=== PATIENT | male | born 1990 | race Hispanic/Latino ===

== ENCOUNTER 2017-04-09 08:45 | Emergency (ER) | payer SELFPAY ==
[~2017-04-09] VITALS: Ht 170.2 cm; Wt 52.3 kg
[~2017-04-09 08:45] MED LIST: KEFLEX500 MG PO; MOTRIN800 MG PO; NAPROSYN500 MG PO; NO; ROBITUSSIN AC10 ML PO; ULTRAM50 M1 PO; ZITHROMAX250 MG PO
[2017-04-09 11:03] VITALS: BP 126/87
== END 2017-04-09 11:14 | disposition home or self-care (01) | DRG 607 ==
LOC: ED 08:45
DX: L90.5 Scar conditions and fibrosis of skin (principal); F17.210 Nicotine dependence, cigarettes, uncomplicated

== ENCOUNTER 2018-06-09 09:44 | Emergency (ER) | payer SELFPAY ==
[~2018-06-09] VITALS: Ht 170.2 cm; Wt 60.0 kg
[2018-06-09] MEDS ORDERED: MOTRIN400 MG PO (09:52)
[2018-06-09 10:55] VITALS: BP 118/60
== END 2018-06-09 10:55 | disposition home or self-care (01) | DRG 563 ==
LOC: ED 09:44
PROC: 2W3DX1Z Immobilization of Left Lower Arm using Splint (ICD-10-PCS; principal; 2018-06-09)
DX: S63.502A Unspecified sprain of left wrist, initial encounter (principal); V00.131A Fall from skateboard, initial encounter; Y93.I9 Activity, other involving external motion; Y92.007 Garden or yard of unspecified non-institutional (private) residence as the place of occurrence of the external cause

== ENCOUNTER 2018-07-18 20:08 | Emergency (ER) | payer SELFPAY ==
[~2018-07-18] VITALS: Ht 170.2 cm; Wt 54.0 kg
[~2018-07-18 20:08] MED LIST changes: +MOTRIN400 MG PO
[2018-07-18] MEDS ORDERED: AUGMENTIN875TAB PO (20:28)
[2018-07-18 20:45] VITALS: BP 122/82
== END 2018-07-18 20:45 | disposition home or self-care (01) | DRG 153 ==
LOC: ED 20:08
DX: J01.90 Acute sinusitis, unspecified (principal); F17.210 Nicotine dependence, cigarettes, uncomplicated

== ENCOUNTER 2018-07-27 17:30 | Emergency (ER) | payer OTHER ==
[~2018-07-27] VITALS: Ht 170.2 cm; Wt 52.3 kg
[~2018-07-27 17:30] MED LIST changes: +AUGMENTIN875TAB PO
[2018-07-27] MEDS ORDERED: TORADOL PO (18:23)
[2018-07-27] MEDS ORDERED: FLEXERIL PO (18:23)
[2018-07-27 19:08] VITALS: BP 116/68
== END 2018-07-27 19:12 | disposition home or self-care (01) | DRG 552 ==
LOC: ED 17:30
DX: S16.1XXA Strain of muscle, fascia and tendon at neck level, initial encounter (principal); F17.210 Nicotine dependence, cigarettes, uncomplicated; V49.40XA Driver injured in collision with unspecified motor vehicles in traffic accident, initial encounter

== ENCOUNTER 2021-01-31 07:34 | Emergency (ER) | payer SELFPAY ==
[~2021-01-31 07:34] MED LIST changes: +FLEXERIL PO; +TORADOL PO
[2021-01-31] MEDS ORDERED: IBUPROFEN600 MG PO (11:34)
[2021-01-31 11:37] VITALS: BP 139/85
== END 2021-01-31 11:40 | disposition home or self-care (01) | DRG 195 ==
LOC: ED 07:34
DX: R09.1 Pleurisy (principal); R05 Cough; F17.200 Nicotine dependence, unspecified, uncomplicated; Z87.09 Personal history of other diseases of the respiratory system; Z20.822 Contact with and (suspected) exposure to COVID-19

== ENCOUNTER 2021-07-25 10:26 | Emergency (ER) | payer SELFPAY ==
[~2021-07-25] VITALS: Ht 170.2 cm; Wt 64.0 kg
[~2021-07-25 10:26] MED LIST changes: +IBUPROFEN600 MG PO
[2021-07-25 12:00] VITALS: BP 132/90
== END 2021-07-25 12:00 | disposition home or self-care (01) | DRG 179 ==
LOC: ED 10:26
DX: U07.1 COVID-19 (principal); F17.200 Nicotine dependence, unspecified, uncomplicated

== ENCOUNTER → 2022-04-28 | Emergency (ER) | payer SELFPAY ==
[~2022-04-28] VITALS: Ht 170.2 cm; Wt 52.3 kg
[2022-04-28 02:58] LABS: HEMATOCRIT 40.3 % (39.0-50.0); HEMOGLOBIN 13.9 g/dl (14.0-18.0); IMMATURE GRANULOCYTES 0.1 % (0.0-5.0); MEAN CELL VOLUME 93.3 fL CALC (80.0-100.0); MEAN CORPUSCULAR HGB 32.2 pG CALC (26.0-32.0); MEAN CORPUSCULAR HGB CONC 34.5 g/dL CAL (32.0-36.0); NEUT# 7.85 thou/uL (1.82-7.42); RED BLOOD COUNT 4.32 mill/uL (4.70-6.10); RED CELL DISTRI WIDTH 11.6 % (11.5-15.5)
[2022-04-28 03:04] VITALS: BP 116/74
== END | disposition home or self-care (01) | DRG 866 ==
LOC: ED 02:27
PROVIDERS: Family Medicine
DX: B34.9 Viral infection, unspecified (principal); F17.200 Nicotine dependence, unspecified, uncomplicated; Z20.822 Contact with and (suspected) exposure to COVID-19

== ENCOUNTER 2022-10-07 18:07 | Emergency (ER) | payer SELFPAY ==
[~2022-10-07] VITALS: Ht 170.2 cm; Wt 52.1 kg
[2022-10-07 18:31] VITALS: BP 115/76
[2022-10-07 19:00] VITALS: BP 108/73
[2022-10-07 19:31] LABS: HEMATOCRIT 38.3 % (39.0-50.0); HEMOGLOBIN 13.3 g/dl (14.0-18.0); IMMATURE GRANULOCYTES 0.1 % (0.0-5.0); MEAN CELL VOLUME 93.4 fL CALC (80.0-100.0); MEAN CORPUSCULAR HGB 32.4 pG CALC (26.0-32.0); MEAN CORPUSCULAR HGB CONC 34.7 g/dL CAL (32.0-36.0); NEUT# 5.4 thou/uL (1.82-7.42); RED BLOOD COUNT 4.1 mill/uL (4.70-6.10)
[2022-10-07] MEDS ORDERED: TAM75CAP PO (21:20)
[2022-10-07 21:33] VITALS: BP 108/73
== END 2022-10-07 21:39 | disposition home or self-care (01) | DRG 153 ==
LOC: ED 18:07
PROVIDERS: Family Medicine
DX: J11.1 Influenza due to unidentified influenza virus with other respiratory manifestations (principal); Z20.822 Contact with and (suspected) exposure to COVID-19; F17.210 Nicotine dependence, cigarettes, uncomplicated

== ENCOUNTER 2024-07-07 12:47 | Emergency (ER) | payer SELFPAY ==
[~2024-07-07] VITALS: Ht 170.2 cm; Wt 50.0 kg
[~2024-07-07 12:47] MED LIST changes: +TAM75CAP PO
[2024-07-07 13:10] VITALS: BP 130/84
[2024-07-07 13:15] VITALS: BP 102/68
[2024-07-07 13:45] VITALS: BP 107/68
[2024-07-07 13:46] LABS: BASO% 0.6 % (0-3); EOS% 2.1 % (0-8); HEMOGLOBIN 14.1 g/dl (14.0-18.0); IMMATURE GRANULOCYTES 0.1 % (0.0-5.0); LYMPH% 28.7 % (15-41); MEAN CELL VOLUME 97.7 fL CALC (80.0-100.0); MEAN CORPUSCULAR HGB CONC 32.8 g/dL CAL (32.0-36.0); MONO% 9.7 % (2-13); NEUT# 3.93 thou/uL (1.82-7.42); NEUT% 58.8 % (42-76); RED BLOOD COUNT 4.4 mill/uL (4.70-6.10); RED CELL DISTRI WIDTH 12.2 % (11.5-15.5)
[2024-07-07 13:56] LABS: ALBUMIN 4.2 g/dL (3.2-5.0); BILIRUBIN, TOTAL 0.7 mg/dL (0.2-1.3); CREATININE 1.1 mg/dL (0.7-1.3); POTASSIUM 4.5 mmol/l (3.5-5.1); TOTAL PROTEIN 6.4 g/dL (6.3-8.2)
[2024-07-07 14:00] VITALS: BP 100/65
[2024-07-07 14:15] VITALS: BP 97/62
[2024-07-07] MEDS ORDERED: ONDANSETRON 4 MG/TAB ODT SL ONE (14:20)
[2024-07-07] MEDS ORDERED: KURIC21 TD (14:22)
[2024-07-07] MEDS ORDERED: ZOFRAN4 MG/TAB PO (14:23)
[2024-07-07 14:30] VITALS: BP 97/62
== END 2024-07-07 14:44 | disposition home or self-care (01) | DRG 392 ==
LOC: ED 12:47
PROVIDERS: Nurse Practitioner
DX: R11.2 Nausea with vomiting, unspecified (principal); R19.7 Diarrhea, unspecified; B35.4 Tinea corporis; F17.200 Nicotine dependence, unspecified, uncomplicated

== ENCOUNTER 2024-09-17 02:29 | Emergency (ER) | payer SELFPAY ==
[~2024-09-17] VITALS: Ht 170.2 cm; Wt 52.0 kg
[~2024-09-17 02:29] MED LIST changes: +KURIC21 TD; +ZOFRAN4 MG/TAB PO
[2024-09-17] MEDS ORDERED: DiphenhydrAMINE HCL 50 MG/ML SDV IV ONE (02:45)
[2024-09-17] MEDS ORDERED: METOCLOPRAMIDE HCL 10 MG/2 ML SDV IV ONE (02:45)
[2024-09-17] MEDS ORDERED: ONDANSETRON HCl 4 MG/2 ML SDV IV ONE (02:45)
[2024-09-17] MEDS ORDERED: SODIUM CHLORIDE 0.9% 1,000 ML IV ONE (02:50)
[2024-09-17] MEDS ORDERED: Iopamidol 370 (Isovue) 76% 100 ML SDV IV ONE (02:55)
[2024-09-17] MEDS ORDERED: ACETAMINOPHEN 500 MG TAB PO ONE (02:55)
[2024-09-17 03:05] LABS: BASO% 0.5 % (0-3); EOS% 2.2 % (0-8); HEMATOCRIT 40.1 % (39.0-50.0); HEMOGLOBIN 13.4 g/dl (14.0-18.0); IMMATURE GRANULOCYTES 0.8 % (0.0-5.0); LYMPH% 25.4 % (15-41); MEAN CELL VOLUME 96.4 fL CALC (80.0-100.0); MEAN CORPUSCULAR HGB 32.2 pG CALC (26.0-32.0); MEAN CORPUSCULAR HGB CONC 33.4 g/dL CAL (32.0-36.0); MONO% 8.7 % (2-13); NEUT# 6.14 thou/uL (1.82-7.42); NEUT% 62.4 % (42-76); RED BLOOD COUNT 4.16 mill/uL (4.70-6.10)
[2024-09-17 03:11] LABS: BILIRUBIN, TOTAL 0.4 mg/dL (0.2-1.3); CREATININE 1.2 mg/dL (0.7-1.3); POTASSIUM 3.9 mmol/l (3.5-5.1); TOTAL PROTEIN 6.5 g/dL (6.3-8.2)
[2024-09-17 04:30] VITALS: BP 100/66
[2024-09-17 04:45] VITALS: BP 100/63
[2024-09-17 05:00] VITALS: BP 96/65
[2024-09-17 05:15] VITALS: BP 107/66
[2024-09-17 05:30] VITALS: BP 101/66
[2024-09-17] MEDS ORDERED: CELEBREX200 MG PO (05:38)
[2024-09-17 06:00] VITALS: BP 101/66
== END 2024-09-17 06:00 | disposition home or self-care (01) | DRG 103 ==
LOC: ED 02:29
PROVIDERS: Emergency Medicine
DX: G43.909 Migraine, unspecified, not intractable, without status migrainosus (principal); F17.200 Nicotine dependence, unspecified, uncomplicated
CPT/HCPCS: Q9967